=== PATIENT | female | born 1965 | race Caucasian/White ===

== ENCOUNTER → 2017-08-20 | Outpatient (CLI) | payer OTHER ==
--- NOTE | 2017-08-21 09:34 | MM ---
Reason for exam: screening (asymptomatic). Last mammogram was performed 1 year and 6 months ago. History: Benign left US cyst aspiration of the left breast, April 29, 2008. Took hormonal contraceptives for 7 years beginning at age 16. Physical Findings: A clinical breast exam by your physician is recommended on an annual basis and results should be correlated with mammographic findings. MG Screening Mammo w CAD Bilateral CC and MLO view(s) were taken. Prior study comparison: February 21, 2016, bilateral MG screening mammo w CAD. August 09, 2014, bilateral MG screening mammo w CAD. The breast tissue is heterogeneously dense. This may lower the sensitivity of mammography. Finding: There is a questionable 6 mm obscured oval mass located 4 cm from the nipple in the anterior, central position of the left breast. ASSESSMENT: Incomplete: need additional imaging evaluation, BI-RAD 0 RECOMMENDATION: Special view mammogram of the left breast. If lesion persists on supplemental views, image directed ultrasound is recommended. [facility] will attempt to contact patient to return for supplemental views and ultrasound if indicated.
== END | disposition home or self-care (01) ==
LOC: RADMAMWWP 07:08
PROVIDERS: ATTEND Family Medicine
DX: Z12.31 Encounter for screening mammogram for malignant neoplasm of breast (principal)
CPT/HCPCS: 77067

== ENCOUNTER → 2017-08-23 | Outpatient (CLI) | payer OTHER ==
--- NOTE | 2017-08-26 08:20 | USB ---
Reason for exam: additional evaluation requested from abnormal screening. History: Benign left US cyst aspiration of the left breast, April 29, 2008. Took hormonal contraceptives for 7 years beginning at age 16. US Breast Workup Limited LT Left breast ultrasound demonstrates no cystic or solid lesion seen. These results were verbally communicated with the patient and result sheet given to the patient on 08/23/17. ASSESSMENT: Negative, BI-RAD 1 RECOMMENDATION: Return to routine screening mammogram schedule for both breasts.
--- NOTE | 2017-08-26 08:20 | MM ---
Reason for exam: additional evaluation requested from abnormal screening. Last mammogram was performed less than 1 month ago. History: Benign left US cyst aspiration of the left breast, April 29, 2008. Took hormonal contraceptives for 7 years beginning at age 16. Physical Findings: Nurse did not find any significant physical abnormalities on exam. MG Work Up Mamm w CAD LT Spot compression CC, spot compression MLO, and LM view(s) were taken of the left breast. Prior study comparison: August 20, 2017, bilateral MG screening mammo w CAD. February 21, 2016, bilateral MG screening mammo w CAD. The breast tissue is heterogeneously dense. This may lower the sensitivity of mammography. The previously seen 4mm focal asymmetry improves on spot compression views. However, precautionary ultrasound will be performed. These results were verbally communicated with the patient and result sheet given to the patient on 08/23/17. ASSESSMENT: Incomplete: need additional imaging evaluation, BI-RAD 0 RECOMMENDATION: Ultrasound of the left breast. (lower outer quadrant)
== END | disposition home or self-care (01) ==
LOC: RADMAMWWP 14:42
PROVIDERS: ATTEND Family Medicine
DX: R92.8 Other abnormal and inconclusive findings on diagnostic imaging of breast (principal)
CPT/HCPCS: 77065

== ENCOUNTER → 2018-09-04 | Outpatient (CLI) | payer OTHER ==
--- NOTE | 2018-09-05 10:20 | MM ---
Reason for exam: screening (asymptomatic). Last mammogram was performed 1 year ago. History: Patient is postmenopausal. Benign left US cyst aspiration of the left breast, April 29, 2008. Took hormonal contraceptives for 7 years beginning at age 16. Physical Findings: A clinical breast exam by your physician is recommended on an annual basis and results should be correlated with mammographic findings. MG Screening Mammo w CAD Bilateral CC and MLO view(s) were taken. Prior study comparison: August 23, 2017, left breast MG work up mamm w CAD LT. August 20, 2017, bilateral MG screening mammo w CAD. The breast tissue is heterogeneously dense. This may lower the sensitivity of mammography. Benign appearing bilateral calcifications. No significant changes when compared with prior studies. ASSESSMENT: Benign, BI-RAD 2 RECOMMENDATION: Routine screening mammogram of both breasts in 1 year.
== END | disposition home or self-care (01) ==
LOC: RADMAMWWP 15:16
PROVIDERS: ATTEND Family Medicine
DX: Z12.31 Encounter for screening mammogram for malignant neoplasm of breast (principal)
CPT/HCPCS: 77067

== ENCOUNTER → 2018-09-15 | Outpatient (CLI) | payer OTHER ==
--- NOTE | 2018-09-15 11:22 | ECHOF ---
Referral Reason:I10 Hypertension MEASUREMENTS -------- HEIGHT: 167.6 cm WEIGHT: 102.1 kg BP: RVIDd: 2.8 cm (< 3.3) IVSd: 1.2 cm (0.6 - 1.1) LVIDd: 4.0 cm (3.9 - 5.3) LVPWd: 1.2 cm (0.6 - 1.1) IVSs: 1.7 cm LVIDs: 2.9 cm LVPWs: 1.8 cm LA Diam: 3.3 cm (2.7 - 3.8) LAESV Index (A-L): 23.24 ml/m Ao Diam: 2.3 cm (2.0 - 3.7) AV Cusp: 1.7 cm (1.5 - 2.6) LA Diam: 3.7 cm (2.7 - 3.8) MV EXCURSION: 18.395 mm (> 18.000) MV EF SLOPE: 77 mm/s (70 - 150) EPSS: 0.4 cm MV E Keven: 0.59 m/s MV DecT: 242 ms MV A Keven: 0.92 m/s MV E/A Ratio: 0.64 RAP: 5.00 mmHg RVSP: 31.05 mmHg FINDINGS -------- Sinus rhythm. This was a technically adequate study. The left ventricular size is normal. There is mild concentric left ventricular hypertrophy. Overa ll left ventricular systolic function is normal with, an EF between 55 - 60 %. The right ventricle is normal in size. The left atrial size is normal. The right atrial size is normal. The aortic valve is trileaflet, and appears structurally normal. No aortic stenosis or regurgitation. The mitral valve is normal. Mild mitral regurgitation is present. Mild tricuspid regurgitation present. There is no evidence of pulmonary hypertension. The right v entricular systolic pressure, as measured by Doppler, is 31.05mmHg. Trace/mild (physiologic) pulmonic regurgitation. The aortic root size is normal. There is no pericardial effusion. CONCLUSIONS -------- 1. Sinus rhythm. 2. This was a technically adequate study. 3. The left ventricular size is normal. 4. There is mild concentric left ventricular hypertrophy. 5. Overall left ventricular systolic function is normal with, an EF between 55 - 60 %. 6. The left atrial size is normal. 7. The aortic valve is trileaflet, and appears structurally normal. No aortic stenosis or regurgitati on. 8. Mild mitral regurgitation is present. 9. Mild tricuspid regurgitation present. 10. There is no evidence of pulmonary hypertension. 11. Trace/mild (physiologic) pulmonic regurgitation. 12. The aortic root size is normal. 13. There is no pericardial effusion. [employer]: Amparo Erickson RDCS
== END | disposition home or self-care (01) ==
LOC: RADNMMAIN 08:34
PROVIDERS: ATTEND Family Medicine
DX: I08.1 Rheumatic disorders of both mitral and tricuspid valves (principal); I08.8 Other rheumatic multiple valve diseases; R07.89 Other chest pain; I10 Essential (primary) hypertension
CPT/HCPCS: 93306

== ENCOUNTER → 2018-09-29 | Outpatient (CLI) | payer OTHER ==
--- NOTE | 2018-09-29 10:08 | P.STRESS ---
- Stress Test Note Stress Test Results/Findings: Exam Performed: stress echo exercise Exam Date: 09/29/18 Reason for Exam: cp Height: 5 ft 6 in Weight: 99.79 kg Protocol: milli Stage: 3 Duration of Exercise: 6 min 30 sec Resting Heart Rate: 71 Resting Blood Pressure: 183/73 Maximum Achieved Heart Rate: 149 Maximum Achieved Blood Pressure: 214/81 85% PMHR: 142 100% PMHR: 167 METS: 7.1 Technologist Comment: Stress Test Results/Findings: This is a 52-year-old female with history of hypertension, hypercholesterolemia, family history of ischemic heart disease who is being evaluated by symptoms of chest pain. Stress data: Baseline EKG showed sinus rhythm with normal AK interval and QRS duration. Blood pressure at rest is 183/73 with pulse rate of 71. Patient walked on the treadmill for about 6 minutes and 30 seconds achieving a maximum rate of 149 with a blood pressure of 214/81.. EKGs taken during and after exercise did not reveal any significant changes from the baseline. Patient did did not expense any chest pain but complained of mild shortness of breath. Echo data: Baseline echo images showed normal wall motion and thickening. Exercise echo images showed augmentation of wall motion and thickening in all the segments. Final impression: #1. Negative stress test #2. Negative stress echo
--- NOTE | 2018-09-30 13:06 | ECHOS ---
Stress Test Results/Findings: Exam Performed: stress echo exercise Exam Date: 09/29/18 Reason for Exam: cp Height: 5 ft 6 in Weight: 99.79 kg Protocol: milli Stage: 3 Duration of Exercise: 6 min 30 sec Resting Heart Rate: 71 Resting Blood Pressure: 183/73 Maximum Achieved Heart Rate: 149 Maximum Achieved Blood Pressure: 214/81 85% PMHR: 142 100% PMHR: 167 METS: 7.1 Technologist Comment: Stress Test Results/Findings: This is a 52-year-old female with history of hypertension, hypercholesterolemia, family history of ischemic heart disease who is being evaluated by symptoms of chest pain. Stress data: Baseline EKG showed sinus rhythm with normal ME interval and QRS duration. Blood pressure at rest is 183/73 with pulse rate of 71. Patient walked on the treadmill for about 6 minutes and 30 seconds achieving a maximum rate of 149 with a blood pressure of 214/81.. EKGs taken during and after exercise did not reveal any significant changes from the baseline. Patient did did not expense any chest pain but complained of mild shortness of breath. Echo data: Baseline echo images showed normal wall motion and thickening. Exercise echo images showed augmentation of wall motion and thickening in all the segments. Final impression: #1. Negative stress test #2. Negative stress echo MTDD
== END | disposition home or self-care (01) ==
LOC: RADNMMAIN 08:14
PROVIDERS: ATTEND Family Medicine
DX: R07.89 Other chest pain (principal)
CPT/HCPCS: 93351

== ENCOUNTER → 2020-10-11 | Outpatient (CLI) | payer OTHER ==
--- NOTE | 2020-10-11 16:32 | BD ---
EXAMINATION TYPE: Axial Bone Density DATE OF EXAM: 10/11/2020 COMPARISON: 02.21.2016 CLINICAL HISTORY: 55 YR OLD FEMALE....ICD-10 CODE: Z78.0 POST MENOPAUSAL Height: 65 Weight: 219 FRAX RISK QUESTIONS: Glucocorticoids (More than 3mos): YES (Ex: prednisone, prednisolone, methylprednisolone, dexamethasone, and hydrocortisone). Current Tobacco Use: YES RISK FACTORS HISTORY OF: Postmenopausal woman: YES, AT ABOUT 51 YRS OLD Hyperparathyroidism: NO Adrenal Insufficiency: NO MEDICATIONS: Prednisone or other steroids: IN HALERS AND STEROIDS INJECTIONS FOR ECZEMA TREATMENT Thyroid Medications: YES, SYNTHROID FOR ABOUT 6-7 YRS Additional Medications: BP MEDS, STATIN FOR CHOLESTEROL, VIT D AND CALCIUM Additional History: HYPERTENSION, CHOLESTEROL, EXAM MEASUREMENTS: Bone mineral densitometry was performed using the [employer] System.3.5 Bone mineral density as measured about the Lumbar spine is: ----- L1-L4(G/cm2): 1.272 T Score Values are as follows: ----- L1: -0.3 ----- L2: 0.3 ----- L3: 1.5 ----- L4: 0.9 ----- L1-L4: 0.8 Bone mineral density has: Increased 3.5% since study of: 02.21.2016 Bone mineral density about the R hip (g/cm2): 1.000 Bone mineral density about the L hip (g/cm2): 0997 T Score values are as follows: -----R Neck: -0.5 -----L Neck: -0.5 -----R Total: -0.1 -----L Total: 0.1 Bone mineral density has: Decreased % since study of: FRAX%s: THERE IS A 7.8% CHANCE FOR A MAJOR OSTEOPOROTIC FX AND A 0.5% FOR FX IN 10 YRS TIME IMPRESSION: Normal (Values between +1 and -1 indicate normal bone mass). Consider repeating this study in 5 year s or sooner if there is some new clinical indication. NOTE: T-SCORE=SD OF THE YOUNG ADULT MEAN.
--- NOTE | 2020-10-12 11:39 | MM ---
Reason for exam: screening (asymptomatic). Last mammogram was performed 2 years and 1 month ago. History: Patient is postmenopausal. Benign left US cyst aspiration of the left breast, April 29, 2008. Took hormonal contraceptives for 7 years beginning at age 16. Physical Findings: A clinical breast exam by your physician is recommended on an annual basis and results should be correlated with mammographic findings. MG Screening Mammo w CAD Bilateral CC and MLO view(s) were taken. Prior study comparison: September 04, 2018, bilateral MG screening mammo w CAD. August 23, 2017, left breast MG work up mamm w CAD LT. There are scattered fibroglandular densities. There is no discrete abnormality. ASSESSMENT: Negative, BI-RAD 1 RECOMMENDATION: Routine screening mammogram of both breasts in 1 year.
== END | disposition home or self-care (01) ==
LOC: RADMAMWWP 08:02
PROVIDERS: ATTEND Family Medicine
DX: Z12.31 Encounter for screening mammogram for malignant neoplasm of breast (principal); Z78.0 Asymptomatic menopausal state
CPT/HCPCS: 77067; 77080

== ENCOUNTER → 2021-02-15 | Outpatient (CLI) | payer OTHER ==
--- NOTE | 2021-02-16 07:55 | CT ---
EXAMINATION TYPE: CT brain wo/w con DATE OF EXAM: 02/15/2021 COMPARISON: None HISTORY: facial weakness CT DLP: 3550.2mGycm CONTRAST: CT scan of the head is performed without and with IV Contrast, patient injected with 100 mL of Isovue 300. Unenhanced followed by contrast enhanced CT of the brain is submitted for evaluation. The ventricles are midline. There is no evidence for intracranial hemorrhage or extra-axial collection. No mass e ffects are identified. Visualized bony calvarium is intact. Contrast is administered and no enhanci ng lesions are detected. No pathologic enhancement is identified. If symptoms persist consider MRI. IMPRESSION: No enhancing lesions seen.
== END | disposition home or self-care (01) ==
LOC: RADCTMAIN 15:57
PROVIDERS: ATTEND Family Medicine
DX: R29.810 Facial weakness (principal)
CPT/HCPCS: 70470; Q9967

== ENCOUNTER → 2021-11-21 | Outpatient (CLI) | payer OTHER ==
--- NOTE | 2021-11-23 14:53 | MM ---
Reason for Exam: Screening (asymptomatic). Last mammogram was performed 1 year(s) and 1 month(s) ago. Patient History: Menarche at age 11. First Full-Term at age 21. Postmenopausal. Hormonal Contraceptives for 5 years from age 16 until age 21. 04/29/2008, Benign Cyst Aspiration on the left side. Risk Values: Dina 5 year model risk: 1.2%. NCI Lifetime model risk: 7.9%. Film Views: Bilateral CC views were taken. Bilateral MLO views were taken. Prior Study Comparison: 08/23/2017 Left Diagnostic Mammogram, [facility]. 09/04/2018 Bilateral Screening Mammogram, [facility]. 10/11/2020 Bilateral Screening Mammogram, [facility]. Tissue Density: There are scattered fibroglandular densities. Findings: Analyzed By CAD. There is no suspicious group of microcalcifications or new suspicious mass in either breast. Overall Assessment: Benign, BI-RAD 2 Management: Screening Mammogram of both breasts in 1 year. A clinical breast exam by your physician is recommended on an annual basis and results should be correlated with mammographic findings. Electronically signed and approved by: Yuri Garcia M.D. Radiologis
== END | disposition home or self-care (01) ==
LOC: RADMAMWWP 11:16
PROVIDERS: ATTEND Family Medicine
DX: Z12.31 Encounter for screening mammogram for malignant neoplasm of breast (principal); Z78.0 Asymptomatic menopausal state
CPT/HCPCS: 77067

== ENCOUNTER → 2022-11-06 | Outpatient (CLI) | payer OTHER ==
--- NOTE | 2022-11-07 07:47 | MM ---
Reason for Exam: Screening (asymptomatic). Last screening mammogram was performed 12 month(s) ago. Patient History: Menarche at age 11. First Full-Term at age 21. Postmenopausal. Hormonal Contraceptives for 5 years from age 16 until age 21. 04/29/2008, Benign Cyst Aspiration on the left side. Risk Values: Dina 5 year model risk: 1.3%. NCI Lifetime model risk: 7.7%. Prior Study Comparison: 02/21/2016 Bilateral Screening Mammogram, [facility]. 08/20/2017 Bilateral Screening Mammogram, [facility]. 08/23/2017 Left Diagnostic Mammogram, [facility]. 09/04/2018 Bilateral Screening Mammogram, [facility]. 10/11/2020 Bilateral Screening Mammogram, [facility]. 11/21/2021 Bilateral MG screening mammo w CAD, [facility]. Tissue Density: There are scattered fibroglandular densities. Findings: Analyzed By CAD. There is no suspicious group of microcalcifications or new suspicious mass in either breast. Overall Assessment: Negative, BI-RAD 1 Management: Screening Mammogram of both breasts in 1 year. A clinical breast exam by your physician is recommended on an annual basis and results should be correlated with mammographic findings. Electronically signed and approved by: Mark Voss D.O.
== END | disposition home or self-care (01) ==
LOC: RADMAMWWP 07:23
PROVIDERS: ATTEND Family Medicine
DX: Z12.31 Encounter for screening mammogram for malignant neoplasm of breast (principal); Z78.0 Asymptomatic menopausal state
CPT/HCPCS: 77067

== ENCOUNTER → 2023-09-04 | Outpatient (CLI) | payer OTHER ==
--- NOTE | 2023-09-04 10:25 | US ---
EXAMINATION TYPE: US pelvis complete transvag DATE OF EXAM: 09/04/2023 COMPARISON: NONE CLINICAL INDICATION: Female, 57 years old with history of N95.0 POSTMENOPAUSAL BLEEDING; post liliya si nce age 50, period like bleeding x last 3 months TECHNIQUE: Transvaginal (TV) and Transabdominal (TA) . Transabdominal sonographic images of the pel vis were acquired. Transvaginal sonographic images were medically necessary to better assess the fol lowing anatomy: Ovaries Date of LMP: 7 yrs ago EXAM MEASUREMENTS: Uterus: 8.1x3.8x4.7 cm Endometrial Stripe: 1.7 cm Right Ovary: obscured by bowel cm Left Ovary: 4.9x1.7x2.4 cm 1. Uterus: Anteverted wnl 2. Endometrium: thickened and vascular 3. Right Ovary: Obscured by overlying bowel gas 4. Left Ovary: wnl 5. Bilateral Adnexa: Obscured by overlying bowel gas 6. Posterior cul-de-sac: wnl exam limited by bowel gas IMPRESSION: Thickened endometrium. Correlate clinically and consider direct visualization.
== END | disposition home or self-care (01) ==
LOC: RADUSWWP 09:41
PROVIDERS: ATTEND Family Medicine
DX: R93.89 Abnormal findings on diagnostic imaging of other specified body structures (principal); N95.0 Postmenopausal bleeding
CPT/HCPCS: 76830; 76856

== ENCOUNTER → 2024-12-29 | Outpatient (CLI) | payer OTHER ==
--- NOTE | 2024-12-29 10:59 | MM ---
Reason for Exam: Screening (asymptomatic). Last mammogram was performed 2 year(s) and 2 month(s) ago. Patient History: Menarche at age 11. First Full-Term at age 21. Postmenopausal. Hormonal Contraceptives for 5 years from age 16 until age 21. 04/29/2008, Benign Cyst Aspiration on the left side. Risk Values: Dina 5 year model risk: 1.4%. NCI Lifetime model risk: 7.4%. Prior Study Comparison: 10/11/2020 Bilateral Screening Mammogram, [facility]. 11/21/2021 Bilateral MG screening mammo w CAD, [facility]. 11/06/2022 Bilateral MG screening mammo w CAD, [facility]. Tissue Density: There are scattered areas of fibroglandular density. Findings: Analyzed By CAD. Nodular focal asymmetry 6-7 o'clock left breast middle depth appears more defined. Further evaluation recommended. Otherwise, no significant change. Overall Assessment: Incomplete: need additional imaging evaluation, BI-RAD 0 Management: Special View Mammogram of the left breast. [facility] will attempt to contact patient to return for supplemental views and ultrasound if indicated. [facility], , 12/29/2024 10:56 AM. Electronically signed and approved by: Donna Villalobos M.D. Radiologist
== END | disposition home or self-care (01) ==
LOC: RADMAMWWP 08:05
PROVIDERS: ATTEND Family Medicine
DX: Z12.31 Encounter for screening mammogram for malignant neoplasm of breast (principal); R92.323 Mammographic fibroglandular density, bilateral breasts; Z78.0 Asymptomatic menopausal state; Z92.0 Personal history of contraception
CPT/HCPCS: 77067

== ENCOUNTER → 2024-12-30 | Outpatient (CLI) | payer OTHER ==
--- NOTE | 2024-12-30 08:23 | MM ---
Reason for Exam: Additional evaluation requested from abnormal screening. Last screening mammogram was performed less than 1 month ago. Patient History: Menarche at age 11. First Full-Term at age 21. Postmenopausal. Hormonal Contraceptives for 5 years from age 16 until age 21. 04/29/2008, Benign Cyst Aspiration on the left side. Risk Values: Dina 5 year model risk: 1.4%. NCI Lifetime model risk: 7.4%. Prior Study Comparison: 11/21/2021 Bilateral MG screening mammo w CAD, [facility]. 11/06/2022 Bilateral MG screening mammo w CAD, [facility]. 12/29/2024 Bilateral MG screening mammo w CAD, [facility]. Tissue Density: Left: There are scattered areas of fibroglandular density. Findings: Analyzed By CAD. The questioned lower quadrant nodularity at a middle depth becomes much less defined on additional views. Only on the spot 3-D CC view, a faint circumscribed 4 mm low-density area is seen suggesting a tiny underlying cyst. Six-month follow-up recommended. Overall Assessment: Probably benign, BI-RAD 3 Management: Diagnostic Mammogram of the left breast in 6 months. Results were given to the patient verbally at the time of exam. Patient should continue monthly self-breast exams. A clinical breast exam by your physician is recommended on an annual basis. This exam should not preclude additional follow-up of suspicious palpable abnormalities. Note on Dina scores and lifetime risk: 1. A Dina score greater than 3% is considered moderate risk. If this is the case, consider specialist referral to assess eligibility for a risk reducing agent. 2. If overall lifetime risk for the development of breast cancer is 20% or higher, the patient may qualify for future screening with alternating mammogram and breast MRI. [facility], , 12/30/2024 8:21 AM. Electronically signed and approved by: Donna Villalobos M.D. Radiologist
== END | disposition home or self-care (01) ==
LOC: RADMAMWWP 07:58
PROVIDERS: ATTEND Family Medicine
DX: R92.8 Other abnormal and inconclusive findings on diagnostic imaging of breast (principal); R92.322 Mammographic fibroglandular density, left breast; Z78.0 Asymptomatic menopausal state; Z92.0 Personal history of contraception
CPT/HCPCS: 77061; 77065